=== PATIENT | female | born 1930 | race Caucasian/White ===

== ENCOUNTER 2016-12-15 20:56 | Emergency (ER) | payer OTHER ==
[2016-12-15 21:33] VITALS: BMI 25.5
[2016-12-15] MEDS ORDERED: VANCOMYCIN 1,000 MG in DEXTROSE 5%-WATER - 250 ML IVPB ONE (22:06)
[2016-12-15] MEDS ORDERED: LEVOFLOXACIN 500 MG IVPB 100 ML IVPB ONE (22:06)
[2016-12-15] MEDS ORDERED: PANTOPRAZOLE SODIUM 40 MG in SODIUM CHLORIDE 100 ML IVPB ONE (22:06)
[2016-12-15] MEDS ORDERED: PANTOPRAZOLE SODIUM 80 MG in SODIUM CHLORIDE 100 ML IVPB SCH (22:15)
[2016-12-15] MEDS ORDERED: ONDANSETRON 4 MG/2 ML VIAL IVPB ONE (22:27)
[2016-12-15] MEDS ORDERED: ONDANSETRON 4 MG/2 ML VIAL ONE (22:29)
[2016-12-15] MEDS ORDERED: ACETAMINOPHEN 1000 MG/100 ML VIAL (NON FORMULARY) IVPB ONE (22:33)
--- NOTE | 2016-12-15 22:39 | PDOC ---
History of Present Illness - General History Source: Patient Exam Limitations: No Limitations <Kenny Sarmiento - Last Filed: 12/16/16 00:33> - General History Source: EMS, Family, [facility] Records, Old Records Exam Limitations: No Limitations - History of Present Illness Initial Comments: 12/15/16 22:53 The patient is an 86 year old female, with a significant past medical history of hypertension, CVA x 2, s/p tracheostomy, s/p PEG, pneumonia, recurrent UTIs and dementia, who presents to the emergency department via EMS from [facility] for altered mental status. The patients family is at the bedside. Family members report that the patient was in her usual state of health yesterday. Today, family members report that the [facility] noted that she was altered since approximately 7AM this morning. After family members were notified, they came to visit the patient. They report a couple episodes of coffee ground emesis since approximately 7PM this evening. At that point, the patient was brought to the ED for evaluation and likely admission. The patient arrives to the ED with a trach in place and is breathing on a ventilator. History is obtained from EMS and family members due to the patients baseline clinical condition. Allergies: Iodine, Penicillins, Shellfish derived. Past Surgical History: S/p tracheostomy, J Tube. PCP: Dr. Prabhakar <Shruti Dodd - Last Filed: 12/16/16 00:39> - General Chief Complaint: Altered Mental Status Stated Complaint: Altered Mental Status Time Seen by Provider: 12/15/16 21:23 Past History - Past Medical History CVA: Yes (LEFT TEMPORAL ICH) Dementia: Yes HTN: Yes Hypercholesterolemia: Yes (HYPERLIPIDEMIA) Suicide Attempt (Hx): No - Surgical History Abdominal Surgery: Yes (J TUBE) - Immunization History Immunization Up to Date: Yes - Psycho/Social/Smoking Cessation Hx Anxiety: No Suicidal Ideation: No Smoking Status: No Smoking History: Never smoked Have you smoked in the past 12 months: No Number of Cigarettes Smoked Daily: 0 Information on smoking cessation initiated: No Hx Alcohol Use: No Drug/Substance Use Hx: No Substance Use Type: None <Kenny Sarmiento - Last Filed: 12/16/16 00:33> <Shruti Dodd - Last Filed: 12/16/16 00:39> - Past Medical History Allergies/Adverse Reactions: Allergies Allergy/AdvReac Type Severity Reaction Status Date / Time iodine Allergy Verified 12/15/16 21:17 Penicillins Allergy Verified 12/15/16 21:17 shellfish derived Allergy Verified 12/15/16 21:17 Home Medications: Ambulatory Orders Acetaminophen [Tylenol] 325 mg PO PRN PRN 12/15/16 Albuterol 2.5/Ipratropium 0.5 [Duoneb -] 1 neb IH QID 12/15/16 Famotidine [Pepcid -] 20 mg PO DAILY 12/15/16 Hydralazine HCl [Apresoline -] 25 mg PO TID 12/15/16 Polyethylene Glycol 3350 [Miralax (For Bowel Prep) -] 17 gm PO DAILY 12/15/16 Review of Systems - Review of Systems Able to Perform ROS?: No Comments:: 12/15/16 22:41 Unable to perform ROS due to the patients baseline clinical condition. <Shruti Dodd - Last Filed: 12/16/16 00:39> *Physical Exam - Vital Signs Last Vital Signs Temp Pulse Resp BP Pulse Ox 99.7 F H 90 15 170/88 100 12/15/16 21:11 12/15/16 21:11 12/15/16 21:11 12/15/16 21:11 12/15/16 21:11 <Kenny Sarmiento - Last Filed: 12/16/16 00:33> - Vital Signs Last Vital Signs Temp Pulse Resp BP Pulse Ox 99.7 F H 90 15 170/88 100 12/15/16 21:11 12/15/16 21:11 12/15/16 21:11 12/15/16 21:11 12/15/16 21:11 - Physical Exam Comments: 12/15/16 22:46 GENERAL: AAO x 0, ill-appearing. HEAD: No signs of trauma. ENT: Clean, dry trach in place. Dark coffee ground appearing emesis. Auricles normal inspection, hearing grossly normal, nares patent. Moist mucosa. NECK: Normal ROM, supple, no lymphadenopathy, JVD, or masses. LUNGS: Breath sounds equal, clear to auscultation bilaterally. No wheezes and no crackles. HEART: Regular rate and rhythm, normal S1 and S2, no murmurs, rubs or gallops. ABDOMEN: Soft, nontender, normoactive bowel sounds. No guarding, no rebound. No masses. EXTREMITIES: Contracted lower extremities, no edema. No clubbing or cyanosis. No cords, erythema, or tenderness. SKIN: Warm, dry, normal turgor, no rashes or lesions noted. <Shruti Dodd - Last Filed: 12/16/16 00:39> ED Treatment Course - LABORATORY CBC & Chemistry Diagram: 12/15/16 22:35 12/15/16 22:35 - RADIOLOGY Radiology Studies Ordered: Category Date Time Status ABDOMEN & PELVIS CT W/O CONTR [CT] Stat CT Scan 12/15/16 22:[address] WITHOUT CONTRAST [CT] Stat CT Scan 12/15/16 21:51 Ordered CHEST X-RAY PORTABLE* [RAD] Stat Radiology 12/15/16 21:27 Ordered <Kenny Sarmiento - Last Filed: 12/16/16 00:33> - LABORATORY CBC & Chemistry Diagram: 12/15/16 22:35 12/15/16 22:35 <Shruti Dodd - Last Filed: 12/16/16 00:39> Medical Decision Making - Medical Decision Making 12/15/16 22:33 A portion of this note was documented by scribe services under my direction. I have reviewed the details of the note, within reason, and agree with the documentation with the following case summary and management plan written by me. Patient treated in the ED. Nursing notes are reviewed and incorporated into the medical decision-making. Vital signs reviewed. Peripheral IV access obtained by the nurse, laboratory studies are drawn and sent, reviewed and interpreted by myself. Vital Signs Temp Pulse Resp BP Pulse Ox 99.7 F H 90 15 170/88 100 12/15/16 21:11 12/15/16 21:11 12/15/16 21:11 12/15/16 21:11 12/15/16 21:11 86 year old female with past medical history dementia, hypertension, stroke, frequent urinary tract infections, prior intracranial hemorrhage status post tracheostomy, PEG presents with altered mental status today from [facility]. The patient was in her usual state of health according to her family at the [facility]. Today, the patient noticed since 7:00 this morning to be altered and in the evening noted to have these vomiting coffee ground emesis. Patient has been AAO 0 but breathing on the ventilator. She's not answering any questions at this moment. The patient is vomiting coffee ground emesis. Will need to rule out GI bleed. However, the patient is quite altered. Differential is broad and includes intracranial hemorrhage, infectious, cardiac, metabolic. The patient will need a stat head CT, abdomen and pelvis. Labs. Chest xray. Empiric protonix and antibiotics. Pt is quite ill-appearing and will most certainly need admission. 12/16/16 00:30 CT scan demonstrated interval moderate acute hemorrhage in the right frontal lobe, anterosuperiorly. Interval large left frontal parietal hemorrhage involving left basal ganglia with mass effect and shift in the midline structures to the right, proximal 1.[address] abdomen and pelvis reviewed. 12/16/16 00:31 Gallstones, PEG tube and satisfied position, mild right renal hydronephrosis and hydroureter without a stone. Diverticulosis. CBC, BMP 12/15/16 22:35 12/15/16 22:35 CMP Sodium 139 mmol/L (136-145) 12/15/16 22:35 Potassium 4.2 mmol/L (3.5-5.1) 12/15/16 22:35 Chloride 98 mmol/L (98-107) D 12/15/16 22:35 Carbon Dioxide 29 mmol/L (21-32) D 12/15/16 22:35 Anion Gap 12 (8-16) 12/15/16 22:35 BUN 24 mg/dL (7-18) H D 12/15/16 22:35 Creatinine 0.8 mg/dL (0.55-1.02) 12/15/16 22:35 Creat Clearance w eGFR > 60 (>60) 12/15/16 22:35 Random Glucose 163 mg/dL (74-106) H D 12/15/16 22:35 Lactic Acid 1.274 mmol/L (0.4-2.0) 12/15/16 22:35 Calcium 9.7 mg/dL (8.5-10.1) 12/15/16 22:35 Total Bilirubin 0.3 mg/dL (0.2-1.0) D 12/15/16 22:35 AST 19 U/L (15-37) D 12/15/16 22:35 ALT 28 U/L (12-78) 12/15/16 22:35 Alkaline Phosphatase 110 U/L (45-117) D 12/15/16 22:35 Creatine Kinase 40 IU/L (26-192) 12/15/16 22:35 Troponin I 0.03 ng/ml (0.00-0.05) 12/15/16 22:35 Total Protein 7.9 g/dl (6.4-8.2) D 12/15/16 22:35 Albumin 3.1 g/dl (3.4-5.0) L 12/15/16 22:35 Given the results, decision was made to give 1 g of Keppra and 50 mg of IV mannitol. Patient's airway protected with a ventilator and tracheostomy. Patient medications reviewed, it appears that the patient is not on anticoagulant. Case is discussed with Dr. Cutler. Agrees with my plan for transfer. Case discussed with neurosurgeon Dr. Mccarty at [facility]. Accepts patient to ER. Case discussed with Dr. Wall, ED attending at [facility], who accepts patient to his ED at [facility]. Dirk at bedside, Kaila and Marj, at bedside and aware of plans. Agrees with transfer. <Kenny Sarmiento - Last Filed: 12/16/16 00:33> - Critical Care Time Total Critical Care Time (minutes): 45 Critical Care Statement: The care of this patient involved high complexity decision making to prevent further life threatening deterioration of the patient 's condition and/or to evalute & treat vital organ system(s) failure or risk of failure. - Medical Decision Making 12/15/16 23:17 EXAM: RAD/CHEST X-RAY PORTABLE Reviewed By: Dr. Zoë Ryan IMPRESSION: No significant interval change or acute lung disease is present. EXAM: CT/HEAD CT WITHOUT CONTRAST Reviewed By: Dr. Zoë Ryan IMPRESSION: Interval moderate acute hemorrhage in the right frontal lobe, anteriorly/superiorly. Interval large left frontoparietal hemorrhage involving the left basal ganglia with mass effect and shift of the midline structures towards the right, approximately 1.2 cm. Intraventricular hemorrhage. Diffuse effacement of the cortical sulci and basal cisterns consistent with brain edema. Lucency/edema is present in the brainstem, yadi. EXAM: CT/ABDOMEN & PELVIS CT W/O CONTR Reviewed By: Dr. Zoë Ryan IMPRESSION: Gallstones. PEG tube is in satisfactory position. Mild right renal hydronephrosis and hydroureter without evidence of an obstructing stone. Tiny stones versus sludge layering in posterior aspect of the urinary bladder. Diverticulosis coli without evidence of acute diverticulitis. No free air or free fluid in the abdomen pelvis. 1.6 cm calcific density in the right adnexa may represent a calcified ovarian lesion versus calcified pedunculated fibroid. <Shruti Dodd - Last Filed: 12/16/16 00:39> *DC/Admit/Observation/Transfer - Discharge Dispostion Admit: No - Transfer to Acute Care Facility Receiving Facility: [facility] Accepting Physician:: Dr. Wall <Kenny Sarmiento - Last Filed: 12/16/16 00:33> - Attestations Scribe Attestion: 12/15/16 22:40 Documentation prepared by Shruti Dodd, acting as medical appointment scheduler for Kenny Sarmiento MD. <Shruti Dodd - Last Filed: 12/16/16 00:39> Diagnosis at time of Disposition: Intracranial bleed - Discharge Dispostion Condition at time of disposition: Guarded - Referrals Referrals: Isaac Prabhakar MD [Primary Care Provider] - - Patient Instructions
[2016-12-15] MEDS ORDERED: ACETAMINOPHEN INJECTION 100 ML IVPB ONE (22:59)
[2016-12-15 23:00] LABS: VENOUS BLOOD GAS HCO3 29.9 meq/L (19-25); VENOUS PH 7.51 (7.32-7.42)
[2016-12-15] MEDS ORDERED: VANCOMYCIN 1 GRAM (PRE-DOCKED) 250 ML IVPB ONE (23:00)
[2016-12-15 23:04] LABS: BASOPHIL 0.2 % (0-2.0); EOSINOPHIL 0.1 % (0-4.5); MCH 27.8 pg (25.7-33.7); MCHC 33.1 g/dl (32.0-36.0); MEAN CELL VOLUME 83.9 fl (80-96); MEAN PLT VOLUME 9.9 fl (7.5-11.1); NEUTROPHILS 83.9 % (42.8-82.8); PLATELET COUNT 390 K/MM3 (134-434); RDW 15.5 % (11.6-15.6); WHITE BLOOD COUNT 15.7 K/mm3 (4.0-10.0)
[2016-12-15] MEDS ORDERED: ACETAMINOPHEN 1000 MG/100 ML VIAL (NON FORMULARY) IVPB PRN (23:07)
[2016-12-15] MEDS ORDERED: ONDANSETRON 4 MG/2 ML VIAL IVPB PRN (23:10)
[2016-12-15 23:14] LABS: INR 1.07 (0.82-1.09); PROTHROMBIN TIME (PATIENT) 11.8 SEC (9.98-11.88)
[2016-12-15] MEDS ORDERED: DEXTROSE 5%-0.45% SALINE 1,000 ML IV SCH (23:15)
[2016-12-15 23:17] LABS: ACTIVATED PTT 28.4 SECONDS (26.9-34.4)
[2016-12-15] MEDS ORDERED: PANTOPRAZOLE SODIUM 100 ML IVPB ONE (23:37)
[2016-12-15] MEDS ORDERED: levETIRAcetam 500 MG/5 ML INJECTION VIAL IVPB ONE ×2 (23:37)
[2016-12-15] MEDS ORDERED: MANNITOL 25% 12.5 GM/50 ML VIAL IVPB ONE (23:37)
[2016-12-15] MEDS ORDERED: DEXTROSE 5% IVPB ONE (23:45)
[2016-12-15] MEDS ORDERED: MANNITOL IVPB ONE (23:45)
[2016-12-15] MEDS ORDERED: WATER IVPB ONE (23:45)
[2016-12-16] MEDS ORDERED: ALBUTEROL SO4 2.5/IPRATROPIUM 0.5 INH SOL 3 ML VIAL.NEB. NEB SCH
[2016-12-16 00:16] LABS: ALBUMIN 3.1 g/dl (3.4-5.0); ALK PHOS 110 U/L (45-117); ANION GAP 12 (8-16); BILIRUBIN,TOTAL 0.3 mg/dL (0.2-1.0); CALCIUM 9.7 mg/dL (8.5-10.1); CO2 29 mmol/L (21-32); CREATININE 0.8 mg/dL (0.55-1.02); GLUCOSE,RANDOM 163 mg/dL (74-106); SGOT/AST 19 U/L (15-37); SGPT/ALT 28 U/L (12-78); TOT PROT 7.9 g/dl (6.4-8.2); TROPONIN I 0.03 ng/ml (0.00-0.05)
[2016-12-16 00:47] LABS: URINE APPEARANCE CLEAR; URINE BILIRUBIN NEGATIVE (NEGATIVE); URINE BLOOD NEGATIVE (NEGATIVE); URINE COLOR STRAW; URINE GLUCOSE (UA) NEGATIVE (NEGATIVE); URINE KETONE NEGATIVE (NEGATIVE); URINE LEUK ESTERASE NEGATIVE (NEGATIVE); URINE NITRITE NEGATIVE (NEGATIVE); URINE PROTEIN NEGATIVE (NEGATIVE); URINE UROBILINOGEN NEGATIVE E.U./dl (0.2-1.0)
[2016-12-16 03:12] VITALS: BP 122/89; PULSE 123; TEMP 98.1
[2016-12-16] MEDS ORDERED: hydrALAZINE HCL 25 MG TABLET (FP) PO SCH (06:00)
[2016-12-16] MEDS ORDERED: POLYETHYLENE GLYCOL 3350 255 GM BTL PO SCH (10:00)
--- NOTE | 2016-12-16 11:35 | EKG ---
Test Reason : Blood Pressure : / mmHG Vent. Rate : 104 BPM Atrial Rate : 104 BPM P-R Int : 122 ms QRS Dur : 066 ms QT Int : 352 ms P-R-T Axes : 057 010 060 degrees QTc Int : 462 ms SINUS TACHYCARDIA Confirmed by ARTUR JAMISON MD ([id number]) on 12/16/2016 11:34:37 AM Referred By: Confirmed By:ARTUR JAMISON MD
== END 2016-12-16 01:30 | disposition short-term general hospital (02) ==
LOC: JER 20:56
PROC: 3E033NZ Introduction of Analgesics, Hypnotics, Sedatives into Peripheral Vein, Percutaneous Approach (ICD-10-PCS; principal; 2016-12-15)
PROC: 3E033GC Introduction of Other Therapeutic Substance into Peripheral Vein, Percutaneous Approach (ICD-10-PCS; 2016-12-15)
PROC: 3E03329 Introduction of Other Anti-infective into Peripheral Vein, Percutaneous Approach (ICD-10-PCS; 2016-12-15)
DX: I61.9 Nontraumatic intracerebral hemorrhage, unspecified (principal); I10 Essential (primary) hypertension; Z86.73 Personal history of transient ischemic attack (TIA), and cerebral infarction without residual deficits; Z93.1 Gastrostomy status; F03.90 Unspecified dementia, unspecified severity, without behavioral disturbance, psychotic disturbance, mood disturbance, and anxiety
CPT/HCPCS: 36415; 70450-TC; 71010-TC; 74176-TC; 80053; 81003; 82550; 82803; 83605; 84484; 85025; 85610; 85730; 86850; 86900; 86901; 87040; 87086; 93005; 93010; 99285-25